=== PATIENT | male | born 1975 | race Caucasian/White ===

== ENCOUNTER 2019-07-08 08:04 | Outpatient (CLI) | payer BC ==
--- NOTE | 2019-07-08 09:48 | MRI ---
MRI RIGHT FOREARM WITHOUT IV CONTRAST: INDICATION: History of right forearm and wrist pain for 6 months with inability to abduct the right wrist. COMPARISON: Right wrist radiograph dated 05/03/2019 and right forearm radiograph dated 05/03/2019. FINDINGS: Motion artifact on the examination heavily limits the image detail. The visualized biceps and brachialis insertions are normal appearing. Triceps insertion is normal-rae earing. No abnormal signal is seen within the musculature of the right forearm. No joint effusion is evident within visualized aspects of the right elbow or wrist joint. There is suggestion of some i ncreased T2 signal seen involving the tendon sheaths of the second and first dorsal compartments which may reflect a component of tenosynovitis. Again the motion artifact at the level of wrist sligh tly limits image detail. Visualized aspects of the median and ulnar nerve appear within normal limits. No bone marrow signal abnormality is grossly evident. IMPRESSION: Some mild tenosynovitis seen involving the second and first dorsal wrist compartment. Component of de Quervain's tenosynovitis cannot be entirely excluded. Recommend correlation clinical examination. Dedicated right wrist MRI may be helpful for improved characterization. Transcribed Date/Time: 07/08/2019 11:10 AM
== END 2019-07-08 08:05 | disposition home or self-care (01) ==
LOC: TBSIIMAG 08:04
PROVIDERS: ATTEND Pediatrics Sports Medicine
DX: M79.631 Pain in right forearm (principal); M25.531 Pain in right wrist; M65.831 Other synovitis and tenosynovitis, right forearm

== ENCOUNTER 2020-08-15 10:02 | Outpatient (CLI) | payer BC ==
--- NOTE | 2020-08-15 10:46 | RAD ---
4 views of the lumbar spine:: 08/15/2020 COMPARISON: 02/12/2017 HISTORY: Spondylosis without myelopathy FINDINGS: Lumbar pedicles appear intact on frontal imaging. There is prominent anterolisthesis at the L5-S1 level measuring approximately 1.7 cm on neutral imaging with bilateral L5 pars defects noted. There is associated disc space narrowing and degenerative endplate change. Upon extension this anterolisthesis measures approximately 1.8 cm and upon flexion the anterolisthesis measures approximately 2.2 cm. IMPRESSION: Bilateral L5 pars defects with anterolisthesis at L5-S1 measuring up to 2.2 cm upon flexi on.
== END 2020-08-15 10:03 | disposition home or self-care (01) ==
LOC: BICRAD 10:02
PROVIDERS: ATTEND Family Medicine
DX: M47.817 Spondylosis without myelopathy or radiculopathy, lumbosacral region (principal); M43.16 Spondylolisthesis, lumbar region; M43.17 Spondylolisthesis, lumbosacral region
CPT/HCPCS: 72120